=== PATIENT | female | born 1980 | race Caucasian/White ===

== ENCOUNTER 2023-06-24 08:00 | Day surgery (SDC) | payer BC, MEDICARE, OTHER ==
[~2023-06-24 08:00] MED LIST: Acetaminophen 325 MG Tab PO SCH; Clindamycin Phosphate in D5W 900 MG in Premix Bag 1 BAG IV SCH; Gabapentin 300 MG Cap PO SCH; Lactated Ringers 1,000 ML IV SCH; Lidocaine 1% 6 ML ONE; Midazolam 1 MG/ML 2 ML SDV ONE; Ondansetron 4 MG/2 ML SDV ONE; Propofol 200 MG/20 ML SDV ONE; Sodium Chloride 0.9% 10 ML Syringe FLUSH PRN; Sodium Chloride 0.9% 10 ML Syringe FLUSH SCH; Succinylcholine 200 MG/10 ML MDV ONE; fentaNYL 250 MCG/5 ML SDV ONE
[2023-06-24] MEDS ORDERED: Bupivacaine 0.5% 30 ML SDV ONE (08:47)
[2023-06-24] MEDS ORDERED: Lidocaine 1% 30 ML SDV ONE (08:47)
[2023-06-24] MEDS ORDERED: EPINEPHrine 1 MG/ML SDV ONE (08:47)
[2023-06-24] MEDS ORDERED: fentaNYL 100 MCG/2 ML SDV IVPUSH PRN (10:40)
[2023-06-24] MEDS ORDERED: HYDROmorphone 0.5 MG/0.5 ML Syringe IVPUSH PRN (10:40)
[2023-06-24] MEDS ORDERED: Lactated Ringers 1,000 ML ONE (10:48)
[2023-06-24] MEDS ORDERED: Dexamethasone 4 MG/ML 5 ML MDV ONE (11:05)
[2023-06-24] MEDS ORDERED: HYDROmorphone 0.5 MG/0.5 ML Syringe ONE (11:46)
[2023-06-24] MEDS ORDERED: Prochlorperazine 10 MG/2 ML SDV IVPUSH PRN (13:17)
== END 2023-06-24 15:15 | disposition home or self-care (01) ==
LOC: JD.SDS 08:00
PROVIDERS: ATTEND Surgery
DX: K91.872 Postprocedural seroma of a digestive system organ or structure following a digestive system procedure (principal); R11.15 Cyclical vomiting syndrome unrelated to migraine; E66.9 Obesity, unspecified; Z68.41 Body mass index [BMI] 40.0-44.9, adult; Z88.0 Allergy status to penicillin
CPT/HCPCS: A9270-GY; J0171; J0330; J0665; J0736; J0780; J1100; J1170; J2250; J2405; J2704; J3010; J3490; J7120